=== PATIENT | male | born 1990 | race Hispanic/Latino ===

== ENCOUNTER 2024-01-13 15:41 | Emergency (ER) | payer SELFPAY ==
[~2024-01-13] VITALS: Ht 170.2 cm; Wt 99.7 kg
[2024-01-13] VITALS (7 sets, daily range): BP systolic 129–144; BP diastolic 76–86
[2024-01-13] MEDS ORDERED: HYDROcodone 5 MG/Acetaminophen 325 MG/COMBO PO ONE (16:00)
[2024-01-13] MEDS ORDERED: KETOROLAC TROMETHAMINE 30 MG/ML SDV IM ONE (16:00)
[2024-01-13] MEDS ORDERED: NAPROXEN500 MG PO (17:04)
[2024-01-13] MEDS ORDERED: TRAMADOL HYDROC50 M1 PO (17:04)
== END 2024-01-13 17:34 | disposition home or self-care (01) | DRG 563 ==
LOC: ED 15:41
DX: S92.342A Displaced fracture of fourth metatarsal bone, left foot, initial encounter for closed fracture (principal); W20.8XXA Other cause of strike by thrown, projected or falling object, initial encounter